=== PATIENT | male | born 1950 | race Caucasian/White ===

== ENCOUNTER → 2018-09-12 | Outpatient (CLI) | payer MEDICARE ==
[2018-09-12 12:06] LABS: Blood Urea Nitrogen 14 mg/dL (9-20)
--- NOTE | 2018-09-12 13:40 | CT ---
EXAMINATION TYPE: CT abdomen pelvis w con DATE OF EXAM: 09/12/2018 COMPARISON: None at this institution. No prior outside images or reports available at time of dictati on HISTORY: Rectal carcinoma CT DLP: 1501.90 mGycm, Automated Exposure Control for Dose Reduction was Utilized. CONTRAST: CT scan of the abdomen and pelvis is performed with oral and with IV Contrast, patient injected with 100 mL of Isovue 300. FINDINGS: LUNG BASES: No significant abnormality is appreciated. LIVER/GB: No significant abnormality is appreciated. PANCREAS: Slight diffuse prominence of pancreas is present without significant surrounding fat strand ing. SPLEEN: No significant abnormality is seen. ADRENALS: No significant abnormality is seen. KIDNEYS: No significant abnormality is seen. BOWEL: Oral contrast extends nearly to level of left mid abdominal ostomy. There is no suspicious sma ll or large bowel dilatation. Sutures are rectal stump axial image 72 are noted. Superior to this the re is elongated thin-walled fluid collection could reflect postsurgical seroma coronal image 83. Ther e is nonspecific soft tissue thickening of the presacral space near axial image 66 for reference. PROSTATE/SEMINAL VESICLES: A few left-sided pelvic phleboliths are seen. Left central calcification n oted LYMPH NODES: No greater than 1cm abdominal or pelvic lymph nodes are appreciated. OSSEOUS STRUCTURES: Moderate disc space narrowing L5-S1 level with moderate anterior spurring is pres ent mild to moderate axial joint space loss in both hips is seen. OTHER: No significant additional abnormality is seen. IMPRESSION: Nonspecific changes presacral space and rectal stump favor posttreatment change. This can be correlated with old outside CT to confirm. No convincing evidence of neoplastic recurrence.
== END | disposition home or self-care (01) ==
LOC: RADCTMAIN 11:14
PROVIDERS: ATTEND Internal Medicine Hematology & Oncology
DX: Z03.89 Encounter for observation for other suspected diseases and conditions ruled out (principal); C20 Malignant neoplasm of rectum; Z98.890 Other specified postprocedural states
CPT/HCPCS: 82565; 84520; 74177; 36415; Q9967

== ENCOUNTER → 2019-08-15 | Outpatient (CLI) | payer MEDICARE ==
[2019-08-15 10:20] LABS: African American GFR (CKD) >90 (>60 ml/min/1.73 sqM); Blood Urea Nitrogen 19 mg/dL (9-20)
--- NOTE | 2019-08-15 14:50 | CT ---
EXAMINATION TYPE: CT abdomen pelvis w con DATE OF EXAM: 08/15/2019 COMPARISON: Prior CT 09/12/2018 HISTORY: Rectal carcinoma CT DLP: 1628.3 mGycm Automated exposure control for dose reduction was used. TECHNIQUE: Helical acquisition of images from the chest through the pelvis have been completed. CONTRAST: Performed with Oral Contrast and with IV Contrast, patient injected with 100 mL of Isovue 300. FINDINGS: LUNG BASES: No significant abnormality is appreciated. AORTA: No significant abnormality is appreciated. LIVER/GB: Some minimal increased density present at the anterior liver edge is noted which show some similar appearance, no evident mass, the gallbladder is normal.. PANCREAS: No significant abnormality is seen. SPLEEN: No significant abnormality is seen. ADRENALS: No significant abnormality is seen. KIDNEYS: No significant abnormality is seen. REPRODUCTIVE ORGANS: No significant abnormality is seen BOWEL: No significant interval change is seen. Ostomy is present in the left lower quadrant. Postop changes are stable within the pelvis. Presacral soft tissue attenuation is ill-defined and shows a si milar appearance to prior exam. FREE AIR: No Free Air visible. ASCITES: None visible. PELVIC ADENOPATHY: None visualized. RETROPERITONEAL ADENOPATHY: No Retroperitoneal Adenopathy visible. URINARY BLADDER: No significant abnormality is seen. OSSEOUS STRUCTURES: No significant abnormality is seen. IMPRESSION: POSTOP, POSTPROCEDURAL CHANGES.
== END | disposition home or self-care (01) ==
LOC: RADCTMAIN 09:39
PROVIDERS: ATTEND Internal Medicine Hematology & Oncology
DX: C20 Malignant neoplasm of rectum (principal); Z98.890 Other specified postprocedural states
CPT/HCPCS: 82565; 84520; 74177; 36415; Q9967

== ENCOUNTER → 2020-08-11 | Outpatient (CLI) | payer MEDICARE ==
[2020-08-11 11:13] LABS: African American GFR (CKD) >90 (>60 ml/min/1.73 sqM); Blood Urea Nitrogen 17 mg/dL (9-20); Non-African American GFR(CKD) >90 (>60 ml/min/1.73 sqM)
--- NOTE | 2020-08-11 12:45 | CT ---
EXAMINATION TYPE: CT ChestAbdPelvis w con DATE OF EXAM: 08/11/2020 COMPARISON: 08/15/2019 HISTORY: Rectal cancer. CT DLP: 1660.5 mGycm CONTRAST: CT scan of the chest, abdomen and pelvis is performed with Oral Contrast and with IV Contrast, patien t injected with 100 mL of Isovue M300. CT Chest: LUNGS: The lungs are clear and free of infiltrate or atelectasis. No pulmonary nodule or mass is det ected. No pleural effusion or CT evidence of interstitial lung disease. MEDIASTINUM: Thoracic aorta is of normal caliber. The heart is not enlarged. No evidence for media stinal mass or adenopathy. Nodularity left thyroid lobe. HILAR STRUCTURES: No evidence for mass. No hilar adenopathy is appreciated. OTHER: No significant abnormality. CONTRAST CT ABDOMEN AND PELVIS FINDINGS: LIVER/GB: No calcified gallstones. No space occupying hepatic lesion. Biliary tree is of normal ca liber. PANCREAS: No inflammation. No distinct mass. SPLEEN: No splenic enlargement. No lesion seen. ADRENALS: No nodule. No thickening. KIDNEYS/BLADDER: No hydronephrosis. No nephrolithiasis. No disctinct renal mass. BOWEL: Left-sided ostomy is redemonstrated within the left lower quadrant. Postoperative changes of t he resection within the region of the rectum. Presacral soft tissue attenuation is unchanged and is l ikely related to prior therapy. No evidence for recurrent or residual mass. GENITAL ORGANS: No gross abnormality. LYMPH NODES: No greater than 1cm abdominal or pelvic lymph nodes are appreciated. AORTA: No significant abnormality. OSSEOUS STRUCTURES: No significant abnormality is seen. OTHER: No significant additional abnormality is seen. IMPRESSION: 1. Stable postoperative changes without evidence for recurrent disease or metastatic disease.
== END | disposition home or self-care (01) ==
LOC: RADCTMAIN 10:29
PROVIDERS: ATTEND Internal Medicine Hematology & Oncology
DX: C20 Malignant neoplasm of rectum (principal); Z98.890 Other specified postprocedural states
CPT/HCPCS: 82565; 84520; 71260; 74177; 36415; Q9967 ×2

== ENCOUNTER 2023-03-25 10:24 | Day surgery (SDC) | payer MEDICARE ==
[~2023-03-25 10:24] MED LIST: DEXAMETHASONE SOD PHOSPHATE 4 MG/ML 1 ML VIAL IV ONE; HYDROmorphone 0.5 MG/0.5 ML SYRINGE IVP PRN; LACTATED RINGERS 1,000 ML IV SCH; MIDAZOLAM 2 MG/2 ML VIAL IV PRN; ONDANSETRON 4 MG/2 ML VIAL IVP ONE
[2023-03-25 10:44] VITALS: RESP 16
[2023-03-25] MEDS ORDERED: PHENYLEPHRINE-0.9% NACL SYG 1,000 MCG/10 ML SYRINGE ONE (11:12)
[2023-03-25] MEDS ORDERED: PROPOFOL 10 MG/ML 20 ML VIAL IV ONE (11:12)
[2023-03-25] MEDS ORDERED: fentaNYL (PF) 50 MCG/ML 2 ML AMP ONE (11:12)
[2023-03-25] MEDS ORDERED: LIDOCAINE 2% INJ 20 MG/ML (2 ML VIAL) ONE (11:12)
[2023-03-25] MEDS ORDERED: ceFAZolin 1,000 MG in SODIUM CHLORIDE 0.9% 1,000 ML IRRIGATION ONE (11:14)
[2023-03-25] MEDS ORDERED: BUPIVACAINE (PF) 0.25% 30 ML VIAL SQ ONE (11:24)
--- NOTE | 2023-03-25 12:16 | P.OP ---
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 Timeout was taken to confirm correct patient identifiers, correct laterally surgery, and correct procedure. Once all staff in the room were in agreement with the timeout, the patient was induced and placed under general anesthesia. A well-padded tourniquet was placed on the left ankle and then 20 mL of 0.25% Marcaine was injected as a forefoot block. The left foot was then prepped and draped in usual manner. The right foot was exsanguinated and the tourniquet inflated to 250 mmHg. Attention was directed over the proximal interphalangeal joints of the second through fourth digits. Linear incisions were made directly over the joints. The incisions were deepened down to the subcutaneous tissue careful to identify, avoid, and retract any neurovascular structures and cauterize any bleeding ve ssels. Subcutaneous dissection was done medially and laterally to allow exposure to the joint. A transverse incision was made through the dorsal capsular and tendinous structures. The collateral ligaments were also transected which delivered the proximal phalangeal head into the surgical field. A sagittal saw was used to resect the head of the proximal phalanges at the level the neck. Once completed a guidewire for the 2.3 mm cannulated screw was used to create a pocket on the proximal phalanx. Fluoroscopy confirmed that direction of the wire in the phalanx. Then the wire was removed and inserted at the base of the middle phalanx. It was advanced out the distal aspect of the digit leaving a small portion exposed at the surgical site. The small portion was then lined up with a hole in the proximal phalanx and then the pin was advanced to the base of the proximal phalanx. Fluoroscopic imaging showed that the alignment of the wire was correct both on AP and lateral views on digits 2 through 4. A small stab incision was made at the tips of the digits where the pins were exiting. 2.3 mm headless screws were then inserted over the guidewires and advanced until the heads engaged the bone of the distal phalanx and allowed for compression at the arthroplasty site. Final fluoroscopic imaging showed all screws were properly aligned and there was rectus alignment of the digits. All wires were removed and then it was noted that the year was still dorsal contractures of the digits of the metatarsal phalangeal joints. Small stab incisions were made medial to the extensor tendons going to the corresponding digits, the blade was rotated and advanced deep to the tendon and then rotated dorsally and the digits plantarflexed. There is a palpable give once the tendons were transected. All wounds were thoroughly irrigated with antibiotic saline. Skin incisions were closed with 3-0 nylon at the digits. The small stab incisions were all closed with dermal glue. Nonadherent gauze and a dry sterile dressing applied the right foot. The tourniquet was released and capillary refill return to all digits on the right foot.
[2023-03-25 12:18] VITALS: TEMP 97.1
[2023-03-25 13:53] VITALS: BP 161/84; PULSE 65
== END 2023-03-25 13:46 | disposition home or self-care (01) ==
LOC: OR 10:24
PROVIDERS: ATTEND Podiatrist
DX: M20.42 Other hammer toe(s) (acquired), left foot (principal); I10 Essential (primary) hypertension; Z87.891 Personal history of nicotine dependence; Z85.048 Personal history of other malignant neoplasm of rectum, rectosigmoid junction, and anus; Z92.21 Personal history of antineoplastic chemotherapy; Z92.3 Personal history of irradiation; Z79.899 Other long term (current) drug therapy
CPT/HCPCS: 28285; C1713; J1100; J0690 ×2; J2405; J3010; J2370; J2704; J2001

== ENCOUNTER → 2023-11-15 | Outpatient (CLI) | payer MEDICARE ==
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
== END | disposition home or self-care (01) ==
LOC: RADXRMAIN 11:09
PROVIDERS: ATTEND Orthopaedic Surgery
DX: Z18.10 Retained metal fragments, unspecified (principal); M25.562 Pain in left knee; I10 Essential (primary) hypertension; M17.12 Unilateral primary osteoarthritis, left knee; M23.92 Unspecified internal derangement of left knee; Z85.9 Personal history of malignant neoplasm, unspecified

== ENCOUNTER → 2023-12-12 | Outpatient (CLI) | payer MEDICARE ==
--- NOTE | 2023-12-12 13:05 | US ---
EXAMINATION TYPE: US venous doppler duplex LE LT DATE OF EXAM: 12/12/2023 12:51 PM COMPARISON: NONE CLINICAL INDICATION: Male, 73 years old with history of I80.9 PHLEBITIS AND THROMBOPHLEBITIS; knee oliver rgery last week, pain and swelling posterior left calf SIDE PERFORMED: Left TECHNIQUE: The lower extremity deep venous system is examined utilizing real time linear array sonog vinay with graded compression, doppler sonography and color-flow sonography. VESSELS IMAGED: Common Femoral Vein Deep Femoral Vein Greater Saphenous Vein * Femoral Vein Popliteal Vein Small Saphenous Vein * Proximal Calf Veins (* superficial vessels) Left Leg: Negative for DVTGrayscale, color doppler, spectral doppler imaging performed of the deep v eins of the lower extremities. There is normal flow, compressibility, vascular waveforms. there is significant edema at the proximal posterior calf, the small saphenous vein appears partially thrombosed though this may be chronic IMPRESSION: 1. No evidence for deep vein thrombosis. 2. Chronic appearing small saphenous vein superficial thrombophlebitis.
== END | disposition home or self-care (01) ==
LOC: RADUSWWP 12:14
PROVIDERS: ATTEND Orthopaedic Surgery
DX: I80.9 Phlebitis and thrombophlebitis of unspecified site (principal); I10 Essential (primary) hypertension; M17.12 Unilateral primary osteoarthritis, left knee; M23.362 Other meniscus derangements, other lateral meniscus, left knee; Z85.9 Personal history of malignant neoplasm, unspecified

== ENCOUNTER 2025-05-21 05:56 | Day surgery (SDC) | payer MEDICARE ==
[2025-05-21] MEDS ORDERED: ALPRAZolam 0.5 MG TAB PO PRN (06:22)
[2025-05-21] MEDS ORDERED: ALPRAZolam 0.25 MG TAB PO PRN (06:22)
[2025-05-21] MEDS ORDERED: NITROGLYCERIN SL TABS 0.4 MG TAB SUBLINGUAL PRN (06:22)
[2025-05-21] MEDS: SODIUM CHLORIDE 0.9% 1,000 ML in EMPTY BAG 1 BAG IV SCH (06:52)
[2025-05-21] MEDS: ASPIRIN 325 MG TAB PO STA (06:52)
[2025-05-21 06:56] VITALS: TEMP 97.6
[2025-05-21] MEDS: IV FLUID CONTINUATION 1,000 ML IV ONE (06:56)
[2025-05-21 07:04] LABS: Basophils # (A) 0.03 10*3/uL (0.00-0.10); Basophils % (A) 0.8 %; Eosinophils # (A) 0.08 10*3/uL (0.04-0.35); Eosinophils % (A) 2.2 %; HCT 37.4 % (39.6-50.0); HGB 13.9 g/dL (13.0-17.0); Lymphocytes # (A) 0.78 10*3/uL (0.90-5.00); Lymphocytes % (A) 21.8 %; MCH 36.0 pg (27.0-32.0); MCHC 37.2 g/dL (32.0-37.0); MCV 96.9 fL (80.0-97.0); Monocytes # (A) 0.50 10*3/uL (0.20-1.00); Monocytes % (A) 14.0 %; Neutrophils # (A) 2.16 10*3/uL (1.80-7.70); Neutrophils % (A) 60.6 %; Platelet Count 205 10*3/uL (140-440); RBC 3.86 10*6/uL (4.40-5.60); RDW 11.8 % (11.5-14.5); WBC 3.57 10*3/uL (4.50-10.00)
[2025-05-21 07:12] LABS: African American GFR (CKD) >90 (>60 ml/min/1.73 sqM); Anion Gap 7 mmol/L; Blood Urea Nitrogen 17 mg/dL (9-20); Calcium 9.3 mg/dL (8.4-10.2); Carbon Dioxide 28 mmol/L (22-30); Chloride 95 mmol/L (98-107); Glucose 90 mg/dL (74-99); Non-African American GFR(CKD) >90 (>60 ml/min/1.73 sqM); Sodium 130 mmol/L (137-145)
[2025-05-21 07:21] LABS: Potassium 4.1 mmol/L (3.5-5.1)
[2025-05-21] MEDS: HEPARIN SODIUM,PORCINE 10,000 UNIT in SODIUM CHLORIDE 0.9% 1,000 ML IRRIGATION PRN (07:26)
[2025-05-21] MEDS: HEPARIN SODIUM,PORCINE (1 ML) 2,500 UNIT in SODIUM CHLORIDE 0.9% 250 ML IRRIGATION PRN (07:27)
[2025-05-21] MEDS: fentaNYL (PF) 50 MCG/1 ML VIAL IVP ONE (07:43)
[2025-05-21] MEDS: MIDAZOLAM 2 MG/2 ML VIAL IVP ONE (07:43)
[2025-05-21] MEDS: LIDOCAINE 1% INJ 10MG/ML (20 ML MDV) SQ ONE (07:45)
[2025-05-21] MEDS: VERAPAMIL 2.5 MG/ML 4 ML VIAL INTRAARTER ONE (07:48)
[2025-05-21] MEDS: HEPARIN SODIUM 1,000 UN/ML (10ML VL) IVP ONE (07:50)
[2025-05-21] MEDS: IOPAMIDOL-370 100ML BTL INJ ONE (08:20)
--- NOTE | 2025-05-21 08:44 | P.CARDCATH ---
Date of Procedure: 05/21/25 Description of Procedure: DIAGNOSTIC CORONARY ANGIOGRAPHY and LEFT HEART CATH REPORT PROCEDURES PERFORMED: Left heart catheterization Selective coronary angiography Moderate conscious sedation 30 mins [Ultrasound assisted] Right radial access INDICATION: Abnormal stress test Elevated coronary artery calcium score CONSENT: I have explained the procedural steps of above-mentioned procedures in layman's terms to the patient. I discussed the risks (including but not limited to stroke, emergent vascular or cardiac surgery or ), benefits and alternative therapies for the above-mentioned procedure. I discussed the risks of sedation/analgesia and blood product administration (if indicated). The abhishek gray has indicated understanding and acceptance of these risks. Conscious Sedation: Patient's ECG, heart rate, blood pressure, pulse oximetry were monitored throughout the duration of procedure under my direct supervision. 1 mg Versed and [50] mcg Fentanyl were used for induction of moderate conscious sedation. Total duration of moderate concious sedation 30 minutes. PROCEDURAL DETAILS: Patient was prepped and draped in sterile fashion. 1% lidocaine was infiltrated over the right radial artery. Right radial access was obtained via modified seldinger technique. [Ultrasound was used for radial access]. Medications: 5mg of verapamil was administed in the radial sheet.6000 Units of Heparin was administed once the catheter reached the aortic root Wires and Catheter used: J wire was advanced under fluroscopy to get to aortic root. 5 peruvian JR 4 diagnostic catheter was utilized obtain left ventricular pressure and pressure gradint across aortic valve. 5 peruvian JR 4 diagnostic catheter was used to selectively engage the right coronary ostium. 5 peruvian JL 3.5 diagnostic catheter was utilized to selectively engage the left coronary ostium. Angiographic images were reviewed in detail. Catheter and wire were removed. Radial sheet was flushed. The right radial sheath was removed and a TR band was placed. Patent hemostasis was achieved. The patient tolerated the procedure well. Patient was transported back to the post catheterization holding area in stable condition. TECHNICAL DETAILS Total contrast used: Isovue [60 ml] Complications: [none] Estimated Blood loss: less than 15 ml HEMODYNAMICS: Aortic Pressure: 110/70 mmHg. LV pressure: 112/5 mmHg. LVEDP 12 mmHg. There was no significant gradient across the aortic valve. SELECTIVE CORONARY ARTERIOGRAPHY: LEFT MAIN: The left main is short and large caliber vessel. It bifurcates into the LAD and circumflex. Left main appears angiographically normal. LEFT ANTERIOR DESCENDING CORONARY ARTERY: LAD is a large caliber vessel which wraps around to the apex. Proximal mid and distal LAD appears angiographically patent. Mid LAD gives rise to medium size diagonal branches to be scintigraphically patent. Tortuous arteries. LEFT CIRCUMFLEX CORONARY ARTERY: LCx is nondominant, moderate caliber. LCx appears angiographically patent. It gives rise to OM branch which appears graphically patent. RIGHT CORONARY ARTERY: Dominant vessel. Proximal RCA is very tortuous with a hairpin turn just after its origin. Appears patent. Mid RCA has diffuse tubular long segment 70% disease. Distal RCA is 100% occluded. There are robust vrfo-xo-vaujm collaterals filling the distal RCA in retrograde fashion. IMPRESSION: 100% occluded distal RCA with robust lusk-xr-suufz collaterals 70% diffuse long tubular mid RCA calcific disease Tortuous coronary arteries Normal LVEDP PLAN: Patient denies any cardiovascular symptoms he is physically active exercising in the gym. He has robust collaterals filling the distal 100% RCA which is difficult to intervene because of significant tortuosity and hairpin turn at its origin. Plan is to treat him medically. Case was discussed with Dr. Srivastava Performing Physician Chandrakant Chisholm MD, FACC, RPVI Thank you for allowing [facility] to participate in this patient's care. Feel free to reach out in case of any followup questions.
[2025-05-21 10:26] VITALS: BP 112/73; PULSE 53; RESP 15
== END 2025-05-21 12:07 | disposition home or self-care (01) ==
LOC: CATHCVL 05:56
PROVIDERS: ATTEND Student in an Organized Health Care Education/Training Program
DX: I25.10 Atherosclerotic heart disease of native coronary artery without angina pectoris (principal); E78.5 Hyperlipidemia, unspecified; I10 Essential (primary) hypertension; Z87.891 Personal history of nicotine dependence; Z79.899 Other long term (current) drug therapy
CPT/HCPCS: 93458; 80048; 85025; 99152; 99153; C1769 ×2; C1894; J2250; J1644 ×3; J2003; Q9967; J3010

== ENCOUNTER 2025-05-24 08:30 | Emergency (ER) | payer MEDICARE ==
[2025-05-24 08:36] VITALS: RESP 18
--- NOTE | 2025-05-24 09:05 | ED ---
Skin/Abscess/FB HPI - General Chief complaint: Skin/Abscess/Foreign Body Stated complaint: Left leg Bug Bite Time Seen by Provider: 05/24/25 09:03 Source: patient, RN notes reviewed Mode of arrival: ambulatory Limitations: no limitations - History of Present Illness Initial comments: 74-year-old male presented to ER for evaluation of a left hip bump. Patient states yesterday morning he upon waking he noticed a red erythematous "bump" to his left hip. He states it is mildly pruritic and is a sore discomfort. He states he has been able to ambulate without difficulty. He denies any drainage, fevers, chills or limited range of motion of left hip. No paresthesias. Patient states he was in the yard recently wearing shorts and may have been bitten by a bug. He has not taken or applied any medications for symptoms. Patient states his urged him to come be evaluated for concern of infection no other complaints. - Related Data Home Medications Medication Instructions Recorded Confirmed Ascorbic Acid [Vitamin C] 500 mg PO DAILY 03/22/23 05/20/25 Cholecalciferol [Vitamin D3 (25 25 mcg PO MOWEFR 03/22/23 05/20/25 Mcg = 1000 Iu)] Multivitamins, Thera [Multivitamin 1 tab PO DAILY 03/22/23 05/20/25 (formulary)] Triamterene/Hydrochlorothiazid 1 each PO DAILY 03/22/23 05/21/25 [Triamterene-Hctz 37.5-25 mg Tb] Valsartan [Diovan] 320 mg PO DAILY 03/22/23 05/21/25 amLODIPine [Norvasc] 10 mg PO DAILY 03/22/23 05/21/25 Rivaroxaban [Xarelto] 20 mg PO DAILY 05/20/25 05/21/25 Rosuvastatin Calcium [Crestor] 40 mg PO DAILY 05/20/25 05/21/25 Aspirin 81 mg PO ONCE 05/21/25 05/21/25 carvediloL [Coreg] 3.125 mg PO BID 05/21/25 05/21/25 Allergies Allergy/AdvReac Type Severity Reaction Status Date / Time No Known Allergies Allergy Verified 05/24/25 08:35 Review of Systems ROS Statement: Those systems with pertinent positive or pertinent negative responses have been documented in the HPI. ROS Other: All systems not noted in ROS Statement are negative. Past Medical History Past Medical History: Atrial Fibrillation, Cancer, Hypertension, Osteoarthritis (OA) Additional Past Medical History / Comment(s): rectal cancer 2014-had surgery, radiation & chemo, past hx. bowel obstruction, has colostomy History of Any Multi-Drug Resistant Organisms: None Reported Past Surgical History: Bowel Resection, Tonsillectomy Additional Past Surgical History / Comment(s): bowel resection w/colostomy Past Anesthesia/Blood Transfusion Reactions: No Reported Reaction Past Psychological History: No Psychological Hx Reported Smoking Status: Former smoker Past Alcohol Use History: None Reported Past Drug Use History: None Reported - Past Family History Mother Family Medical History: No Reported History General Exam Limitations: no limitations General appearance: alert, in no apparent distress Respiratory exam: Present: normal lung sounds bilaterally. Absent: respiratory distress, wheezes, rales, rhonchi, stridor Cardiovascular Exam: Present: normal rhythm, irregular rhythm, normal heart sounds Extremities exam: Present: normal inspection, full ROM, normal capillary refill (2+ left DP pulse). Absent: tenderness, pedal edema, joint swelling, calf tenderness Neurological exam: Present: alert, oriented X3, CN II-XII intact Skin exam: Present: warm, dry, intact, normal color, other (erythematous mildy raised lesion overlying left greater trochanter. No fluctuance, warmth or drainage noted) Course Vital Signs 05/24/25 05/24/25 08:33 09:36 Temperature 97.5 F L 97.7 F Pulse Rate 57 L 60 Respiratory 18 18 Rate Blood Pressure 151/81 148/80 O2 Sat by Pulse 99 99 Oximetry Medical Decision Making - Medical Decision Making Was pt. sent in by a medical professional or institution (, PA, [employer]IENT [employer], urgent care, hospital, or detention...) When possible be specific @ -No Did you speak to anyone other than the patient for history (EMS, parent, family, police, friend...)? What history was obtained from this source @ -No Did you review nursing and triage notes (agree or disagree)? Why? @ -I reviewed and agree with nursing and triage notes Were old charts reviewed (outside hosp., previous admission, EMS record, old EK G, old radiological studies, urgent care reports/EKG's, detention records)? Report findings @ -No old charts were reviewed Differential Diagnosis (chest pain, altered mental status, abdominal pain women, abdominal pain men, vaginal bleeding, weakness, fever, dyspnea, syncope, headache, dizziness, GI bleed, back pain, seizure, CVA, palpatations, mental health, musculoskeletal)? @ -Bug bite, cellulitis, abscess, cyst,... This list is not meant to be all- inclusive EKG interpreted by me (3pts min.). @ -None done X-rays interpreted by me (1pt min.). @ -None done CT interpreted by me (1pt min.). @ -None done U/S interpreted by me (1pt. min.). @ -None done What testing was considered but not performed or refused? (CT, X-rays, U/S, labs)? Why? @ -None What meds were considered but not given or refused? Why? @ -None Did you discuss the management of the patient with other professionals (professionals i.e. , PA, [employer], lab, RT, psych nurse, hospice social worker, cleat feeder, teacher, catapult and arresting gear officer, business case analyst)? Give summary @ -No Was smoking cessation discussed for >3mins.? @ -No Was critical care preformed (if so, how long)? @ -No Were there social determinants of health that impacted care today? How? (Homelessness, low income, unemployed, alcoholism, drug addiction, transportation, low edu. Level, literacy, decrease access to med. care, residential, rehab)? @ -No Was there de-escalation of care discussed even if they declined (Discuss DNR or withdrawal of care, Hospice)? DNR status @ -No What co-morbidities impacted this encounter? (DM, HTN, Smoking, COPD, CAD, Cancer, CVA, ARF, Chemo, Hep., AIDS, mental health diagnosis, sleep apnea, morbid obesity)? @ -None Was patient admitted / discharged? Hospital course, mention meds given and route, prescriptions, significant lab abnormalities, going to OR and other pertinent info. @ -Discharge. 74-year-old male presented to ER for evaluation of left hip "bump". Vital signs stable. Exam remarkable for erythematous macular mildly raised lesion over left greater trochanter. There is no fluctuance, warmth, purulent drainage noted. Patient is neuro vascularly intact with full active range of motion. Findings concerning of a bug bite for which patient was instructed on conservative treatment options. Topical Benadryl applied prior to discharge. I recommended continued use of p.o. Benadryl and topical Benadryl or hydrocortisone to aid with symptoms. Strict return parameters discussed. Patient discharged in stable condition advised follow-up closely with PCP. Patient verbally expressed understanding agreement with care plan. Case discussed with ED attending, Dr. Robertson. Undiagnosed new problem with uncertain prognosis? @ -No Drug Therapy requiring intensive monitoring for toxicity (Heparin, Nitro, Insulin, Cardizem)? @ -No Were any procedures done? @ -No Diagnosis/symptom? @ -Bug bite Acute, or Chronic, or Acute on Chronic? @ -Acute Uncomplicated (without systemic symptoms) or Complicated (systemic symptoms)? @ -Uncomplicated Side effects of treatment? @ -No Exacerbation, Progression, or Severe Exacerbation? @ -No Poses a threat to life or bodily function? How? (Chest pain, [place], [place], pneumonia, PE, COPD, DKA, ARF, appy, cholecystitis, CVA, Diverticulitis, Homicidal, Suicidal, threat to staff... and all critical care pts) @ -No Disposition Clinical Impression: Bug bite Disposition: HOME SELF-CARE Condition: Stable Additional Instructions: I recommend use of [id number] Benadryl topical and oral. I also recommend [id number] hydrocortisone. Monitor for any worsening redness or purulent drainage. Return to the ER for any new or worsening concerns Is patient prescribed a controlled substance at d/c from ED?: No Referrals: Maria C Castrejon MD [Primary Care Provider] - 1-2 days Time of Disposition: 09:11
[2025-05-24] MEDS: diphenhydrAMINE 2% CREAM 28.4 GM TUBE TOPICAL SCH (09:36)
[2025-05-24 09:42] VITALS: BP 148/80; PULSE 60; TEMP 97.7
== END 2025-05-24 09:37 | disposition home or self-care (01) ==
LOC: EC 08:30
DX: S80.862A Insect bite (nonvenomous), left lower leg, initial encounter (principal); Z87.891 Personal history of nicotine dependence; W57.XXXA Bitten or stung by nonvenomous insect and other nonvenomous arthropods, initial encounter
CPT/HCPCS: 99283